=== PATIENT | male | born 1975 | race African-American/Black ===

== ENCOUNTER 2020-07-17 13:19 | Emergency (ER) | payer BC ==
[~2020-07-17] VITALS: Ht 172.7 cm; Wt 101.2 kg
[2020-07-17] MEDS ORDERED: KETOROLAC TROMETHAMINE 60 MG/2 ML VIAL IM ONE (13:45)
[2020-07-17] MEDS ORDERED: ULTRAM 50MG50 MG PO (14:47)
[2020-07-17] MEDS ORDERED: CYCLOBENZAPRINE5 MG PO (14:49)
== END 2020-07-17 15:01 | disposition home or self-care (01) ==
LOC: FSED 13:30
DX: M79.601 Pain in right arm (principal); S50.11XA Contusion of right forearm, initial encounter; X50.0XXA Overexertion from strenuous movement or load, initial encounter; I10 Essential (primary) hypertension
CPT/HCPCS: 73060; 73090; 96372; 99283; J1885